=== PATIENT | female | born 1985 | race Caucasian/White ===

== ENCOUNTER 2025-10-01 10:49 | Emergency (ER) | payer OTHER ==
[~2025-10-01] VITALS: Ht 152.4 cm; Wt 58.8 kg
[2025-10-01] MEDS ORDERED: IBUP200C33 PO (11:18)
[2025-10-01 11:46] LABS: BASO # 0.0 10^3/uL (0.0-0.2); BASO % 0.3 % (0.0-1.0); EOS # 0.1 10^3/uL (0.0-0.5); EOS % 0.9 % (0.0-3.0); LYMPH # 5.7 10^3/uL (1.5-5.0); LYMPH % 44.0 % (24.0-44.0); MONO # 0.8 10^3/uL (0.0-0.8); MONO % 6.0 % (2.0-8.0); NEUTROPHILS # 6.2 10^3/uL (1.5-8.5); NEUTROPHILS % 48.3 % (36.0-66.0); PLATELET COUNT, AUTOMATED 371 10^3/uL (150-450)
[2025-10-01 11:51] LABS: KETONE, URINE AUTO RFX NEGATIVE (NEGATIVE); LEUKOCYTE ESTERASE UR AUTO RFX 1+ (NEGATIVE); MUCUS, URINE RFX SMALL (NEGATIVE); NITRITE, URINE AUTO RFX POSITIVE (NEGATIVE); RBC, URINE AUTO RFX 3 /HPF (0-3); SQUAM EPITHELIAL CELL UR AURFX 5 /HPF (0-6); WBC, URINE AUTO RFX 66 /HPF (0-3)
[2025-10-01 12:20] LABS: ALT/SGPT 20 U/L (7.0-40); AST/SGOT 16 U/L (<34); CALCIUM LEVEL 8.9 MG/DL (8.5-10.1); CARBON DIOXIDE LEVEL 27 MMOL/L (20-31); CHLORIDE LEVEL 104 MMOL/L (98-107); CREATININE FOR GFR 0.51 MG/DL (0.55-1.30); GLOMERULAR FILTRATION RATE > 90.0 (>58); POTASSIUM SERUM 4.0 MMOL/L (3.5-5.1); SODIUM LEVEL 138 MMOL/L (136-145)
[2025-10-01 12:24] LABS: HCG, SERUM QUALITATIVE NEGATIVE (NEGATIVE)
[2025-10-01] MEDS ORDERED: ISOVUE-370 76% 100 ML VIAL As Ordered ONE (13:06)
[2025-10-01] MEDS: KETOROLAC 30 MG/ML 1 ML VIAL IV ONE (13:59)
[2025-10-01] MEDS: ACETAMINOPHEN *IV* 1,000 MG in IV 1 EA IV ONE (14:00)
[2025-10-01] MEDS ORDERED: OLAN1TAB20 PO (14:41)
[2025-10-01] MEDS ORDERED: AMLO1TAB24 PO (14:41)
[2025-10-01] MEDS ORDERED: INSU100I24 SQ (14:41)
[2025-10-01] MEDS ORDERED: NITR0.4S14 SL (14:41)
[2025-10-01] MEDS ORDERED: ECOT81TA5 PO (14:41)
[2025-10-01] MEDS ORDERED: DULO1CAP4 PO (14:41)
[2025-10-01] MEDS ORDERED: METO1TAB87 PO (14:41)
[2025-10-01] MEDS ORDERED: ATOR80TA59 PO (14:41)
[2025-10-01] MEDS ORDERED: VENTAER INH (14:41)
[2025-10-01] MEDS ORDERED: GLIP10TA PO (14:41)
[2025-10-01] MEDS ORDERED: ARIP1TAB6 PO (14:41)
[2025-10-01] MEDS ORDERED: OMEP40CA4 PO (14:41)
[2025-10-01] MEDS ORDERED: HYDR-643 PO (14:41)
[2025-10-01] MEDS ORDERED: LANTINJ4 SC (14:41)
[2025-10-01] MEDS ORDERED: METF-838 PO (14:41)
[2025-10-01] MEDS ORDERED: ESZO1TAB6 PO (14:43)
[2025-10-01] MEDS: ONDANSETRON 4MG/2ML VIAL IV ONE (14:48)
[2025-10-01] MEDS: MORPHINE 4 MG/ML 1 ML VIAL IV PRN (14:50)
[2025-10-01] MEDS ORDERED: HOME MED LIST COMPLETE! XX SCH (15:00)
[2025-10-01] MEDS ORDERED: PHEN-372 PO (15:02)
[2025-10-01] MEDS ORDERED: NITR100C3 PO (15:02)
[2025-10-01 15:28] VITALS: BP 105/79; TEMP 97; O2SAT 97
== END 2025-10-01 15:30 | disposition home or self-care (01) ==
LOC: M ED 10:49
DX: N39.0 Urinary tract infection, site not specified (principal); F31.9 Bipolar disorder, unspecified; F43.10 Post-traumatic stress disorder, unspecified; F20.9 Schizophrenia, unspecified; E11.9 Type 2 diabetes mellitus without complications; J45.909 Unspecified asthma, uncomplicated; K21.9 Gastro-esophageal reflux disease without esophagitis; K76.0 Fatty (change of) liver, not elsewhere classified; I25.2 Old myocardial infarction; I10 Essential (primary) hypertension; F17.200 Nicotine dependence, unspecified, uncomplicated; Z86.73 Personal history of transient ischemic attack (TIA), and cerebral infarction without residual deficits; Z88.8 Allergy status to other drugs, medicaments and biological substances; Z91.040 Latex allergy status; Z79.52 Long term (current) use of systemic steroids; Z79.899 Other long term (current) drug therapy; Z79.82 Long term (current) use of aspirin; Z79.02 Long term (current) use of antithrombotics/antiplatelets; Z79.4 Long term (current) use of insulin
CPT/HCPCS: 74177; 80048; 80076; 81001; 83690; 84703; 85025; 87088; 87186; 96361; 96374; 96375; 99284; J0134; J1885; J2405; Q9967